=== PATIENT | male | born 1945 | race Caucasian/White ===

== ENCOUNTER → 2019-02-27 14:39 | Outpatient (CLI) | payer MEDICARE, OTHER, SELFPAY ==
--- NOTE | 2019-02-27 | DI.CT.S_ITS ---
PROCEDURE: CT CHEST WO CON INDICATIONS: Other nonspecific abnormal finding of lung field TECHNIQUE: Noncontrast 5 mm thick sections acquired from the pulmonary apices to the posterior costophrenic angles. 1 mm lung window, 5 mm thick coronal and sagittal and 7 mm axial MIP reformats were then acquired. For radiation dose reduction, the following was used: automated exposure control, adjustment of mA and/or kV according to patient size. COMPARISON: CT of the chest , 06/23/2014. FINDINGS: Image quality: Excellent. Lungs and pleura: No acute air space opacities. Stable streaky opacity in the medial right lower lobe and most likely due to atelectasis or scarring. Minimal peripheral ground glass opacity. No pleural effusions or pneumothorax. Central and peripheral airways are patent and normal in caliber. A few areas of bronchial wall thickening similar to prior exam. Mediastinum: Heart size is normal. No pericardial effusion. No mediastinal adenopathy by size criteria. Ascending aorta is prominent in size measuring approximately 3.5 cm. Moderate calcified atherosclerotic plaque. Esophagus is normal in caliber. Small hiatal hernia. Bones and chest wall: No suspicious bony lesions. No vertebral body compression fractures. No axillary or supraclavicular adenopathy by size criteria. Thyroid gland is unremarkable. Abdomen: Visualized upper abdominal solid organs and bowel loops appear normal in the absence of contrast. IMPRESSION: 1. Long-term stable streaky opacity in the medial right lower lobe which most likely represents atelectasis or scarring. 2. No acute airspace opacity. 3. Aneurysmal dilatation of the ascending aorta measuring approximately 3.5 cm. Dictated by: Alexis Mo M.D. on 02/27/2019 at 15:46 Approved by: Alexis Mo M.D. on 02/27/2019 at 15:56
== END ==
PROVIDERS: PCP Internal Medicine; Visit Provider Internal Medicine
DX: R91.8 Other nonspecific abnormal finding of lung field (principal); I71.2 Thoracic aortic aneurysm, without rupture; K44.9 Diaphragmatic hernia without obstruction or gangrene
CPT/HCPCS: 71250

== ENCOUNTER → 2020-06-27 19:44 | Outpatient (ROUT) | payer MEDICARE, OTHER, SELFPAY ==
[2020-06-27 20:06] LABS: Aspartate Aminotransferase 35 IU/L (17-59); BUN Creatinine Ratio 16.3 (6-22); Blood Urea Nitrogen 16 mg/dL (9-20); Calcium 9.5 mg/dL (8.4-10.2); Carbon Dioxide 32 mmol/L (22-32); Chloride 102 mmol/L (98-107); Cholesterol 122 mg/dL (140-199); Estimated Glomerular Filt Rate > 60.0 mL/min (>60); Glucose 102 mg/dL (80-110); HDL Cholesterol 43 mg/dL (40-60); HEMOLYSIS < 15 (0-50); LDL Cholesterol Calculated 65 mg/dL (<100); Potassium 4.7 mmol/L (3.4-5.1); Sodium 136 mmol/L (137-145); Triglycerides 68 mg/dL (35-150)
[2020-06-27 20:36] LABS: Prostate Specific Antigen 1.81 ng/mL (0.10-4.00)
== END ==
PROVIDERS: PCP Internal Medicine; Visit Provider Internal Medicine
DX: N40.1 Benign prostatic hyperplasia with lower urinary tract symptoms (principal); E78.2 Mixed hyperlipidemia; R97.20 Elevated prostate specific antigen [PSA]
CPT/HCPCS: 80048; 80061; 84153; 84450

== ENCOUNTER 2021-07-29 08:14 | Observation (INO) | payer MEDICARE, OTHER, SELFPAY ==
[2021-07-29] VITALS (18 sets, daily range): BP systolic 107–145; BP diastolic 61–77; PULSE 49–64; RESP 12–21; TEMP 36.6–36.8; O2SAT 97–99; BMI 25.7; BMI 26.2
--- NOTE | 2021-07-29 08:22 | DI.CT.S_ITS ---
PROCEDURE: CT STROKE INDICATIONS: CVA TECHNIQUE: Noncontrast 4.5 mm thick angled axial sections acquired from the foramen magnum to the vertex, with coronal reformats. For radiation dose reduction, the following was used: automated exposure control, adjustment of mA and/or kV according to patient size. COMPARISON: [facility], MR, BRAIN (IAC) W&WO CONTRAST, 06/18/2017, 9:07. FINDINGS: Image quality: Excellent. CSF spaces: Basal cisterns are patent. No extra-axial fluid collections. The ventricles are symmetric in size and shape. Brain: No intracranial bleeds or masses. There is cerebral volume loss for age, with resultant ventricular and sulcal prominence. There are periventricular and deep white matter chronic small vessel ischemic changes. There is intracranial internal carotid artery atherosclerosis. Skull and face: Calvarium and visualized facial bones appear intact, without suspicious lesions. Sinuses: Visualized sinuses and mastoids are clear. IMPRESSION: No acute intracranial abnormalities. The result was discussed with Dr. Toth on 07/29/2021 at 08:30 hours. This study fulfills neurological imaging criteria for inclusion or exclusion of acute stroke therapies based on available published neurological guidelines. Dictated by: Diamond Frausto M.D. on 07/29/2021 at 8:35 Approved by: Diamond Frausto M.D. on 07/29/2021 at 8:37
--- NOTE | 2021-07-29 08:23 | DI.CT.S_ITS ---
PROCEDURE: CT ANGIO HEAD AND NECK INDICATIONS: CVA TECHNIQUE: Noncontrast images were performed earlier in the day and not repeated. After the administration of intravenous contrast, 1 mm thick sections acquired from the aortic arch through the [place]. Post-contrast 4.5 mm thick sections then re-acquired from the foramen magnum to the vertex. 3-dimensional fjairtk-zzfkzxggx-fqqldbdkbe (MIP) and/or volume rendering reformats were acquired of the central intracranial vasculature and neck separately. COMPARISON: [facility], MR, BRAIN (IAC) W&WO CONTRAST, 06/18/2017, 9:07. [facility], CT, CT STROKE, 07/29/2021, 8:27. FINDINGS: Image quality: Limited by bolus timing, with venous contamination. BRAIN: CSF spaces: Ventricles are normal in size and shape. Basal cisterns are patent. No extra-axial fluid collections. Brain: No midline shift. No intracranial bleeds or masses. Barton-white matter interface appears intact. Calcification is seen within the pineal region, which is considered to be within normal limits. Skull and face: Calvarium and facial bones appear intact, without suspicious lesions. Orbits appear normal. Sinuses: Sinuses and mastoids are clear. HEAD CT ANGIOGRAPHY: Anterior circulation: Intracranial internal carotid arteries are normal in size and flow. 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 The flow within the middle cerebral arteries is normal and symmetric. The anterior communicating artery is seen. No aneurysms are seen. Posterior circulation: Visualized portions of the vertebral arteries demonstrate normal caliber, and join to form a normal appearing basilar artery. Flow within the posterior cerebral arteries is normal and symmetric. No aneurysms are seen. NECK CT ANGIOGRAPHY: Carotid system: The great vessels demonstrate a conventional anatomy as they arise from the aortic arch. The origins of the common carotid arteries appear patent. The common carotid arteries demonstrate normal caliber and courses. The bifurcation regions are both widely patent. The internal carotid arteries demonstrate normal calibers and courses. Posterior circulation: There is approximately 50% narrowing seen involving the left proximal vertebral artery near the origin. The right vertebral artery origin is within normal limits.. The more superior extracranial portions of both vertebral arteries also demonstrate normal courses and calibers. They join to form a normal appearing basilar artery. Soft tissues: Visualized neck soft tissues demonstrate no suspicious abnormalities. Bones: No suspicious bony lesions. Visualized cervical spine appears normally aligned. At least moderate cervical spine degenerative change. IMPRESSION: No significant carotid stenosis can be seen. Approximately 50% narrowing seen involving the left proximal vertebral artery. No significant intracranial arterial abnormality is seen. Incidental note is made of: Fenestrated right A1 segment Cervical spine degenerative change Any quantitative measurements of stenosis were performed using NASCET criteria. Dictated by: Stephane Mederos M.D. on 07/29/2021 at 8:26 Approved by: Stephane Mederos M.D. on 07/29/2021 at 8:30
--- NOTE | 2021-07-29 08:24 | ED_ITS ---
HPI - Neuro Symptoms/Deficit General Chief Complaint: Neuro Symptoms/Deficit Stated Complaint: Dizzy, trouble walking Time Seen by Provider: 07/29/21 08:22 Source: patient Mode of arrival: Ambulatory Limitations: no limitations History of Present Illness HPI Narrative: The patient arrives to the ER with concerns about CVA. He describes awakening/get out of bed about 6:00 a.m.. He had a cup of coffee. He had a smoker. He was outside, he developed sudden dizziness. He denies chest pain or palpitations. He has no dyspnea. He had no visual changes. He arrives with his son, who describes nonsense speach. He spoke clearly, but His words made to sense. The patient is now coherent. He has no visual changes. The initial dizziness has resolved. He denies focal weakness or numbness. He denies palpitations, cardiac history, her current neurologic deficits. He has no prior history of TIA/CVA. He is a cigarette smoker. He denies history of hypertension, or diabetes. He is treated for hyperlipidemia. On Anticoagulants: No Related Data Home Medications Medication Instructions Recorded Confirmed nortriptyline 10 mg capsule 10 mg PO DAILY 07/29/21 07/29/21 sertraline 100 mg tablet 100 mg PO DAILY 07/29/21 07/29/21 simvastatin 40 mg tablet 40 mg PO QPM 07/29/21 07/29/21 tamsulosin 0.4 mg capsule 0.4 mg PO DAILY 07/29/21 07/29/21 Allergies Allergy/AdvReac Type Severity Reaction Status Date / Time Sulfa (Sulfonamide Allergy Verified 07/29/21 09:28 Antibiotics) Review of Systems Constitutional Constitutional: Denies chills, Denies fatigue, Denies fever(s), Denies headac he(s) and Denies weakness Comments: No recent illness. Eyes Eyes: Denies change in vision and Denies diplopia ENT Ears, Nose, Mouth, and Throat: Reports dizziness, Denies headache(s), Denies neck pain, Denies sinus pain and Denies sinus pressure Cardiovascular Cardiovascular: Denies chest pain, Denies syncope, Denies rapid heart rate and Denies dyspnea Comments: No history of arrhythmia. Respiratory Respiratory: Denies cough and Denies dyspnea Gastrointestinal Gastrointestinal: Denies abdominal pain, Denies nausea and Denies vomiting Genitourinary Genitourinary: Denies hematuria, Denies dysuria and Denies urinary frequency Musculoskeletal Musculoskeletal: Denies back pain, Denies neck pain and Denies numbness Integumentary/Breasts Skin/Breast: Denies lesions and Denies rash Neurologic Neurologic: Denies confusion, Reports dizziness, Denies syncope, Denies headache(s), Denies numbness and Denies weakness Psychiatric Psychiatric: Denies anxiety and Denies confusion Endocrine Endocrine: Denies fatigue Hematologic/Lymphatic On Anticoagulants: No Patient History Medical History (Updated 07/29/21 @ 13:23 by Juan Pablo Roberts MD) BPH (benign prostatic hyperplasia) Depression Hyperlipidemia Surgical History (Updated 07/29/21 @ 10:16 by Juan Pablo Roberts MD) No significant past surgical history Social History Smoking Status: Current every day smoker Exam Initial Vital Signs Initial Vital Signs: Vital Signs Temperature 98.2 F 07/29/21 08:20 Pulse Rate 61 07/29/21 08:20 Respiratory Rate 17 07/29/21 08:20 Blood Pressure 145/75 H 07/29/21 08:20 Pulse Oximetry 98 07/29/21 08:20 Const General: cooperative, healthy appearing, comfortable, well developed, well groomed and No acute distress HENMT Head: normal to inspection, normocephalic and atraumatic Mouth: oral mucosae normal Throat: posterior oropharynx normal Eyes General: appearance normal, both eyes and all related structures Pupils: PERRL EOM: EOM intact bilaterally and No nystagmus Other: No visual field cuts. Neck Other: No bruit Chest Chest: normal inspection of the chest Resp Effort & Inspection: normal respiratory effort Auscultation: clear to auscultation bilaterally Cardio Rate: regular rate Rhythm: regular rhythm Heart Sounds: S1 normal, S2 normal, no murmurs and no rubs GI Inspection: normal to inspection Palpation: soft, No mass and No tender Back/Spine/Pelvis Back: normal to inspection and No CVA tenderness Skin General: no rashes or lesions noted Neuro General: patient alert, patient awake, patient oriented x3 and no focal motor deficits Cranial Nerves: No nystagmus Motor: muscle tone normal throughout Extrem General: normal to inspection, no pedal edema and no calf tenderness Psych Mental Status: mental status grossly normal Scores NIH Stroke Scale Level of Conciousness: Alert, keenly responsive Ask month/age: Answers both questions correctly. Open/close eyes, close hand: Performs both tasks correctly Best gaze horizontal: Normal Visual lópez: No visual loss Facial palsy: Normal symetrical movement Left arm drift: No drift for full 10 sec Right arm drift: No drift for full 10 sec Left leg drift: No drift for full 5 sec Right leg drift: No drift for full 5 sec Limb ataxia: Absent Sensory on face/arms/legs: Normal, no sensory loss Best language: No aphasia, normal Dysarthria: Normal Extinction or inattention: No abnormality Total NIH Stroke scale score: 0 Course Course Course Narrative: The patient's son, Alex, arrived at his Dad's house 7:45 this morning. He was having dysarthria that time. The dizziness and dysarthria resolved about the time they arrived here at the hospital. Initial head CT shows no acute findings. Aspirin was given. Head/neck CTA shows 50% narrowing of the left proximal vertebral body. Anterior circulation is clear. The patient was given meclizine for mild recurrent dizziness. There were no neurologic deficits. The patient was admitted to hospitalist, . Orders Ordered: ED Orders 07/29/21 08:22 CT Stroke Stat Urine Drug Screen, Rapid Stat EKG-12 Lead Stat 07/29/21 08:23 CT angio head and neck Stat 07/29/21 08:45 Basic Metabolic Panel Stat Complete Blood Count AUTO DIFF Stat 07/29/21 08:50 COVID19 -Nasal swab/Pre-Proc Stat Sodium Chloride (Normal Saline 0.9%) 1,000 mls @ 150 mls/hr IV CONT JESSI Last Admin: 07/29/21 09:26 Dose: 150 mls/hr Documented by: BLACK Discontinued Medications Aspirin (Aspirin 81 Mg Chew Tab) 324 mg PO NOW ONE Stop: 07/29/21 08:55 Last Admin: 07/29/21 09:15 Dose: 324 mg Documented by: BLACK Meclizine HCl (Meclizine Hcl 12.5 Mg Tablet) 50 mg PO NOW ONE Stop: 07/29/21 09:49 Last Admin: 07/29/21 09:57 Dose: 50 mg Documented by: BLACK Vital Signs Vital signs: Vital Signs - 8 hr 07/29/21 08:20 07/29/21 08:50 07/29/21 09:00 Temperature 98.2 F Pulse Rate 61 62 60 Respiratory Rate 17 21 Blood Pressure 145/75 H Pulse Oximetry 98 99 99 07/29/21 09:30 07/29/21 09:35 07/29/21 10:00 Temperature Pulse Rate 52 L 53 L 60 Respiratory Rate 18 17 18 Blood Pressure 141/72 H 143/77 H Pulse Oximetry 97 97 07/29/21 10:30 07/29/21 11:00 07/29/21 11:30 Temperature Pulse Rate 56 L 49 L 55 L Respiratory Rate 17 17 18 Blood Pressure 134/74 126/63 133/72 Pulse Oximetry MDM - Neuro Symptoms/Deficit Lab Data Result diagrams: 07/29/21 08:45 07/29/21 08:45 Labs: Lab Results 07/29/21 07/29/21 07/29/21 Range/Units 08:45 08:45 08:50 WBC 6.3 (4.5-11.0) X10^3/uL RBC 4.29 L (4.5-5.9) X10^6/uL Hgb 13.0 L (13.5-17.5) g/dL Hct 38.0 L (41-53) % MCV 88.5 (80-100) fL MCH 30.3 (26-34) PG MCHC 34.3 (30-36) % RDW 14.6 (11.6-14.8) % Plt Count 185 (150-400) X10^3/uL Neut % (Auto) 59.9 (50-75) % Lymph % (Auto) 27.6 (25-40) % [place] % (Auto) 9.7 (3-14) % Eos % (Auto) 2.2 (2-4) % Baso % (Auto) 0.6 (0-2) % Neut # (Auto) 3800 (4586-8617) /uL Lymph # (Auto) 1800 (2470-2636) /uL [place] # (Auto) 600 (0-900) /uL Eos # (Auto) 100 (0-450) /uL Baso # (Auto) 0 (0-100) /uL Sodium 137 (137-145) mmol/L Potassium 4.6 (3.4-5.1) mmol/L Chloride 104 (98-107) mmol/L Carbon Dioxide 27 (22-32) mmol/L BUN 22 H (9-20) mg/dL Creatinine 0.97 (0.66-1.25) mg/dL Estimated GFR > 60.0 (>60) mL/min BUN/Creatinine Ratio 22.7 H (6-22) Glucose 138 H (80-110) mg/dL Calcium 8.9 (8.4-10.2) mg/dL SARS-CoV-2 (PCR) Negative (Negative) Point of Care Testing Glucose POC [address] scan - head: Radiologist's Impression: No acute intracranial abnormalities. CTA head and neck:: Radiologist's Impression: ? No significant carotid stenosis can be seen. ? Approximately 50% narrowing seen involving the left proximal vertebral artery. ? No significant intracranial arterial abnormality is seen.? ? ? Incidental note is made of: Fenestrated right A1 segment Cervical spine degenerative change ECG Data Attestation: I personally reviewed and interpreted this ECG as follows: (Normal sinus rhythm rate 61 beats per minute. No ectopy. No acute ST T wave changes. Normal study.) Critical Care Time Critical Care Time Critical Care Time: Yes Total Critical Care Time: 35 Attestation: Time included initial patient assessment, review of Radiology, cardiac, and lab information, in clinical decision making time. The patient's clinical needs were explained. The case was discussed with admitting hospitalist. Discharge Plan Departure Patient Disposition: Home Clinical Impression: Transient ischemic attack, Hyperlipidemia, Continuous tobacco abuse
[2021-07-29 08:49] LABS: Add Manual Diff / Slide Review NO; Basophils Absolute Auto 0 /uL (0-100); Basophils Percent Auto 0.6 % (0-2); Eosinophils Absolute Auto 100 /uL (0-450); Eosinophils Percent Auto 2.2 % (2-4); Lymphocytes Absolute Auto 1800 /uL (1100-4500); Lymphocytes Percent Auto 27.6 % (25-40); Mean Corpuscular HGB Conc 34.3 % (30-36); Mean Corpuscular Hemoglobin 30.3 PG (26-34); Mean Corpuscular Volume 88.5 fL (80-100); Monocytes Absolute Auto 600 /uL (0-900); Monocytes Percent Auto 9.7 % (3-14); Neutrophils Absolute Auto 3800 /uL (1500-7000); Neutrophils Percent Auto 59.9 % (50-75); Platelet Count 185 X10^3/uL (150-400); Red Blood Cell Count 4.29 X10^6/uL (4.5-5.9); Red Cell Distribution Width 14.6 % (11.6-14.8); White Blood Cell Count 6.3 X10^3/uL (4.5-11.0)
[2021-07-29 09:02] LABS: BUN Creatinine Ratio 22.7 (6-22); Blood Urea Nitrogen 22 mg/dL (9-20); Calcium 8.9 mg/dL (8.4-10.2); Carbon Dioxide 27 mmol/L (22-32); Chloride 104 mmol/L (98-107); Estimated Glomerular Filt Rate > 60.0 mL/min (>60); Glucose 138 mg/dL (80-110); HEMOLYSIS < 15 (0-50); Potassium 4.6 mmol/L (3.4-5.1); Sodium 137 mmol/L (137-145)
[2021-07-29] MEDS: ASPIRIN 81 MG CHEW TAB 324 MG PO (09:15)
[2021-07-29] MEDS: SODIUM CHLORIDE 0.9% 1,000 ML 150 ML IV (09:26)
[2021-07-29] MEDS: MECLIZINE HCL 12.5 MG TABLET 50 MG PO (09:57)
[2021-07-29 13:01] LABS: COVID19 -Nasal RAPID Negative (Negative)
--- NOTE | 2021-07-29 14:25 | DI.MRI.S_ITS ---
PROCEDURE: MR HEAD/BRAIN WO CON INDICATIONS: tia TECHNIQUE: Non-contrast axial T1 spin echo, axial T2 fast spin echo, sagittal and axial FLAIR, coronal T2 fast spin echo, axial gradient echo, axial diffusion and ADC through the brain. COMPARISON: [facility], CT, CT ANGIO HEAD AND NECK, 07/29/2021, 8:33. [facility], CT, CT STROKE, 07/29/2021, 8:27. FINDINGS: Image quality: Excellent. CSF spaces: Ventricles appear symmetric in size and shape. Basal cisterns are patent. No extra-axial fluid collections. Brain: No intracranial bleeds or mass effects. There is moderate cerebral volume loss. There are mild periventricular and deep white matter chronic small vessel ischemic changes. Brainstem appears normal. Diffusion-weighted images show no acute ischemic insults. No chronic ischemic insults. Normal intravascular flow voids are present. Skull and face: Calvarial bone marrow is normal in signal. Orbits are normal. Sinuses: Sinuses and mastoids are clear. IMPRESSION: 1. No acute intracranial abnormalities. 2. Cerebral volume loss and chronic microvascular ischemic changes. Dictated by: Diamond Frausto M.D. on 07/29/2021 at 15:39 Approved by: Diamond Frausto M.D. on 07/29/2021 at 15:41
--- NOTE | 2021-07-29 14:26 | DI.ECHO.S_ITS ---
[facility] +---------+ : : [address] : : : : [place], : : : : [place] [id number] : : : : Phone: [phone] Echocardiogram Report + + :Name: CAROL KERNS Study Date: 07/30/2021 Height: 70 in : :[facility] ReadingLocation: Weight: 179 lb: : Gender: Male BSA: 2.0 m2 : :: 1945 Age: 76 yrs : :Reason For Study: TIA : :Ordering Physician: PAULINA, : :NORBERT Performed By: Inna Crump : :Referring: NORBERT GALLARDO : + + Interpretation Summary The left ventricle is normal in size and wall thickness. The ejection fraction is estimated to be 55-60%. Subtle distal anterolateral hypokinesis. The right ventricle is normal in size and function. There is moderate tricuspid regurgitation. The right ventricular systolic pressure is estimated to be at least 37 mmHg based on an estimated right atrial pressure of 8 mm Hg. Mild atherosclerotic plaque(s) in the aortic arch. Procedure: A two-dimensional transthoracic echocardiogram with color flow and Doppler was performed. The study quality was technically adequate. There is no prior echocardiogram noted for this patient. The patient was in normal sinus rhythm during the exam. Left Ventricle: The left ventricle is normal in size and wall thickness. There is no thrombus. The ejection fraction is estimated to be 55-60%. Subtle distal anterolateral hypokinesis. Diastolic parameters suggest probable normal left ventricular diastolic function and normal filling pressures. Right Ventricle: The right ventricle is normal in size and function. Atria: The left atrium is mildly dilated. The right atrium is severely dilated. There is no Doppler evidence for an interatrial shunt. Mitral Valve: The mitral valve leaflets appear mildly thickened, but open well. The mitral valve leaflets are mildly calcified. There is mild mitral regurgitation. Aortic Valve: The aortic valve is trileaflet. The aortic valve opens well. There is no aortic valve stenosis. No aortic regurgitation is present. Tricuspid Valve: The tricuspid valve is normal. There is moderate tricuspid regurgitation. The right ventricular systolic pressure is estimated to be at least 37 mmHg based on an estimated right atrial pressure of 8 mm Hg. Pulmonic Valve: The pulmonic valve leaflets are thin and pliable; valve motion is normal. There is mild pulmonic regurgitation. Great Vessels: The aortic root is normal size. The ascending aorta is normal in size. Mild atherosclerotic plaque(s) in the aortic arch. The pulmonary artery is not well visualized, but is probably normal size. The IVC is dilated (diameter is greater than 2.1 cm) yet it collapses greater than 50% with a sniff. This suggests a right atrial pressure of 8 mm Hg. Pericardium/ Pleura There is no pericardial effusion. MMode/2D Measurements & Calculations LVIDd: 5.6 cm LVOT diam: 2.4 cm LVIDs: 3.7 cm Ao root diam: 3.6 cm IVSd: 0.73 cm asc Aorta Diam: 3.4 cm LVPWd: 0.80 cm Ao Arch Diam (Prox Trans): 2.7 cm LV aponte. diameter/BSA (cm/m^2): 2.8 LV sys. diameter/BSA (cm/m^2): 1.9 FS: 34.4 % LA A2 area: 25.5 cm2 RA long axis: 6.7 cm LA A4 area: 21.6 cm2 RA area: 26.5 cm2 LA length (vol): 6.0 cm RA vol: 88.7 ml LA vol: 78.5 ml RA : 44.6 ml/m2 LA vol index: 39.4 ml/m2 RVD1 (basal): 3.1 cm IVC diam: 2.3 cm RVD2 (mid): 1.9 cm TAPSE: 3.3 cm Doppler Measurements & Calculations Ao V2 max: 141.4 cm/sec LVOT Max Josse: 105.9 cm/sec Ao V2 mean: 97.0 cm/sec LV V1 max P.5 mmHg Ao V2 VTI: 28.0 cm LV V1 VTI: 20.8 cm Ao max P.0 mmHg Ao mean P.2 mmHg ARIS(I,D): 3.4 cm2 MV E max josse: 73.9 cm/sec ARIS(V,D): 3.4 cm2 MV A max josse: 49.6 cm/sec ARIS indexed to BSA (cm^2/m^2): 1.7 MV E/A: 1.5 sev ratio: 0.74 Med Peak E' Josse: 9.6 cm/sec E/E' med: 7.7 Lat Peak E' Josse: 13.3 cm/sec E/E' lat: 5.6 E/e' average: 6.6 MV P1/2t: 48.8 msec TR max josse: 267.6 cm/sec MVA(P1/2t): 4.5 cm2 TR max P.7 mmHg PA V2 max: 79.4 cm/sec SV(LVOT): 94.7 ml PA V2 mean: 54.0 cm/sec PA mean P.3 mmHg PA Accel Time: 0.08 sec Reading Physician:05:00 PM
[2021-07-29 15:07] LABS: Appearance Urine UA CLEAR; Bilirubin Urine UA NEGATIVE (NEGATIVE); Color Urine UA YELLOW; Glucose Urine UA NEGATIVE (Negative); Ketones Urine UA NEGATIVE (NEGATIVE); Leukocyte Esterase Urine UA NEGATIVE (NEGATIVE); Nitrite Urine UA NEGATIVE (Negative); Occult Blood Urine UA NEGATIVE (Negative); Protein Urine UA NEGATIVE (Negative); Urobilinogen Urine UA 0.2 E.U./dL (0.2); pH Urine UA 6.5 (4.5-8.0)
[2021-07-29 15:10] LABS: UR Morphine/Opiate cutoff 300 Negative (Negative); Ur Creatinine Normal (Normal); Ur Specific Gravity Normal (Normal); Urine Amphetamines Negative (Negative); Urine Barbiturates Negative (Negative); Urine Benzodiazepines Negative (Negative); Urine Cocaine Negative (Negative); Urine MDMA Negative (Negative); Urine Methadone Negative (Negative); Urine Methamphetamines Negative (Negative); Urine Oxycodone Negative (Negative); Urine Phencyclidine Negative (Negative); Urine Tetrahydrocannabinol Positive (Negative); Urine Tricyclic Antidepressant Positive (Negative); Urine pH Normal (Normal)
--- NOTE | 2021-07-29 15:58 | PT-IP ANOTE ---
talked with nurse and stated that pt is not ready for PT. nurse informed that pt has dizziness in laying position and in standing and unable to transfer but had gotten meclizine from the ED and has MRI pending. PT will recheck tomorrow.
[2021-07-29] MEDS: MECLIZINE HCL 12.5 MG TABLET 25 MG PO (16:40)
--- NOTE | 2021-07-29 17:30 | PM.HP.1 ---
History of Present Illness History of Present Illness Date Patient Seen: 07/29/21 Time Patient Seen: 15:30 Chief complaint: Dizzy, trouble walking Narrative: Mr. Win is a 76M smoker, HL, BPH who presents with dizziness. This morning he woke up and was in his usual state of health. Later when outside he developed dizziness, as if the room was spinning. He denies any other symptoms. However, his family member said that he was speaking nonsense speech and was not making any sense. The patient denies any visual changes, any swallowing difficulties, any lateralizing weakness in his extremities. He was feeling improved by the time he arrived in the ED, but continued to have room spinning sensation. In the ED workup was done, vitals notable for mildly elevated blood pressure at 145/75. Labs notable for WBC 6.3, hgb 13.0, creatinine 0.97. CT head showed no acute process. CT angio head and neck showed 50% narrowing of the left proximal vertebral artery. Brain MRI showed no acute process. He was given full dose aspirin and meclizine and admitted for further treatment. Patient History Medical History BPH (benign prostatic hyperplasia) Depression Hyperlipidemia Surgical History No significant past surgical history Family & Social History Social History: household members none Prior Living Arrangements House Safety & Behavioral: Feels Safe in Current Yes Environment Been Physically Hurt or No Threatened By a Person Suicidal Ideation Description None Suicide Plan Description No Plan Tobacco & Substance use: Tobacco type cigarettes Smoking Status Current every day smoker alcohol intake never Substance Use Type does not use Meds Home Medications and Allergies Home Medications Medication Instructions Recorded Confirmed Type nortriptyline 10 mg capsule 10 mg PO DAILY 07/29/21 07/29/21 History sertraline 100 mg tablet 100 mg PO DAILY 07/29/21 07/29/21 History simvastatin 40 mg tablet 40 mg PO QPM 07/29/21 07/29/21 History tamsulosin 0.4 mg capsule 0.4 mg PO DAILY 07/29/21 07/29/21 History Allergies Allergy/AdvReac Type Severity Reaction Status Date / Time Sulfa (Sulfonamide Allergy Verified 07/29/21 09:28 Antibiotics) Review of Systems Review of Systems Narrative: 14 systems reviewed and negative aside from what is noted in HPI Exam Vital Signs (past 8 hours): - 07/29/21 09:35 07/29/21 10:00 07/29/21 10:30 Temperature Pulse Rate 53 L 60 56 L Respiratory Rate 17 18 17 Blood Pressure 141/72 H 143/77 H 134/74 Pulse Oximetry 97 07/29/21 11:00 07/29/21 11:30 07/29/21 12:00 Temperature Pulse Rate 49 L 55 L 59 L Respiratory Rate 17 18 13 Blood Pressure 126/63 133/72 Pulse Oximetry 07/29/21 12:01 07/29/21 12:30 07/29/21 13:00 Temperature Pulse Rate 58 L 53 L Respiratory Rate 12 12 Blood Pressure 131/61 133/75 130/73 Pulse Oximetry 07/29/21 13:30 07/29/21 14:00 Temperature 97.9 F Pulse Rate 62 55 L Respiratory Rate 12 20 Blood Pressure 120/74 120/65 Pulse Oximetry 98 Oxygen Delivery Method Room Air Oxygen Flow Rate 0 Narrative Exam Narrative: GEN: no acute distress HEENT: moist mucous membranes, PERRL NECK: trachea midline, no JVD CV: regular rate and rhythm, no murmurs PULM: clear bilaterally ABD: soft, nontender, nondistended, no organomegaly EXT: warm and well perfused with no edema NEURO: awake, alert, oriented, no focal deficits, sensation intact, speech intact, no facial droop PSYCH: pleasant, cooperative Objective Labs Result Diagrams: 07/29/21 08:45 07/29/21 08:45 Labs: Laboratory Results - last 24 hr 07/29/21 07/29/21 07/29/21 08:45 08:45 08:50 WBC 6.3 RBC 4.29 L Hgb 13.0 L Hct 38.0 L MCV 88.5 MCH 30.3 MCHC 34.3 RDW 14.6 Plt Count 185 Neut % (Auto) 59.9 Lymph % (Auto) 27.6 Florence % (Auto) 9.7 Eos % (Auto) 2.2 Baso % (Auto) 0.6 Neut # (Auto) 3800 Lymph # (Auto) 1800 Florence # (Auto) 600 Eos # (Auto) 100 Baso # (Auto) 0 Sodium 137 Potassium 4.6 Chloride 104 Carbon Dioxide 27 BUN 22 H Creatinine 0.97 Estimated GFR > 60.0 BUN/Creatinine Ratio 22.7 H Glucose 138 H Calcium 8.9 Urine Color Urine Appearance Urine pH Ur Specific Eastman Urine Protein Urine Glucose (UA) Urine Ketones Urine Occult Blood Urine Nitrate Urine Bilirubin Urine Urobilinogen Ur Leukocyte Esterase U Opiates 300ng/mL cut Ur Oxycodone Screen Urine Methadone Screen Ur Barbiturates Screen U Tricyclic Antidepress Ur Phencyclidine Scrn Ur Amphetamines Screen U Methamphetamines Scrn Ur MDMA Scrn (Ecstasy) U Benzodiazepines Scrn Urine Cocaine Screen U Marijuana (THC) Screen SARS-CoV-2 (PCR) Negative 07/29/21 07/29/21 14:50 14:50 WBC RBC Hgb Hct MCV MCH MCHC RDW Plt Count Neut % (Auto) Lymph % (Auto) Florence % (Auto) Eos % (Auto) Baso % (Auto) Neut # (Auto) Lymph # (Auto) Florence # (Auto) Eos # (Auto) Baso # (Auto) Sodium Potassium Chloride Carbon Dioxide BUN Creatinine Estimated GFR BUN/Creatinine Ratio Glucose Calcium Urine Color Yellow Urine Appearance Clear Urine pH 6.5 Ur Specific Eastman 1.010 Urine Protein Negative Urine Glucose (UA) Negative Urine Ketones Negative Urine Occult Blood Negative Urine Nitrate Negative Urine Bilirubin Negative Urine Urobilinogen 0.2 Ur Leukocyte Esterase Negative U Opiates 300ng/mL cut Negative Ur Oxycodone Screen Negative Urine Methadone Screen Negative Ur Barbiturates Screen Negative U Tricyclic Antidepress Positive H Ur Phencyclidine Scrn Negative Ur Amphetamines Screen Negative U Methamphetamines Scrn Negative Ur MDMA Scrn (Ecstasy) Negative U Benzodiazepines Scrn Negative Urine Cocaine Screen Negative U Marijuana (THC) Screen Positive H SARS-CoV-2 (PCR) Assessment & Plan Assessment & Plan narrative: Mr. Win is a 76M with PMH HL, smoking who presents with vertigo and speech difficulties. 1. Vertigo and aphasia -concern for possible TIA -CT head negative, CT angio head/neck shows no large vessel thrombus or occlusion, but does show verterbral artery narrowing -MRI head negative for stroke -patient already on statin and aspirin, add plavix for now -ECHO ordered -NIH scale ordered -check lipids and a1c -PT/OT speech -counseled on smoking cessation -other etiology is possible BPPV - also ordered for meclizine 2. Hyperlipidemia -continue statin 3. Active smoker -encourage smoking cessation 4. BPH -continue tamsulosin 5. Depression -continue nortriptyline, sertraline CODE: Full Proxy: Pau Win, spouse I have utilized all available resources to reconcile the patient's home medications Time Spent With Patient Critical Care time: I spent a total of [] minutes of critical care time on this patient's care today; this time is exclusive of procedural time. Quality MIPS - Admit I confirm the patient?s Advance Care Plan is present, Code status is documented, Surrogate decision maker is in patient?s record [If Yes, STOP here]: Yes
--- NOTE | 2021-07-29 18:16 | PC.NURSE ---
pt denies dizziness after taking meclizine. pt ambulated to the bathroom, sba. voiding ok.
[2021-07-29] MEDS: ATORVASTATIN 20 MG TABLET 40 MG PO (20:06)
[2021-07-30 03:33] VITALS: BP 119/72; PULSE 57; RESP 18; TEMP 37; O2SAT 95
[2021-07-30 06:31] LABS: Add Manual Diff / Slide Review NO; Basophils Absolute Auto 0 /uL (0-100); Basophils Percent Auto 0.4 % (0-2); Eosinophils Absolute Auto 200 /uL (0-450); Eosinophils Percent Auto 2.2 % (2-4); Hematocrit 37.3 % (41-53); Hemoglobin 12.6 g/dL (13.5-17.5); Lymphocytes Absolute Auto 2200 /uL (1100-4500); Lymphocytes Percent Auto 28.7 % (25-40); Mean Corpuscular HGB Conc 33.8 % (30-36); Mean Corpuscular Hemoglobin 29.8 PG (26-34); Mean Corpuscular Volume 88.1 fL (80-100); Monocytes Absolute Auto 600 /uL (0-900); Monocytes Percent Auto 8.4 % (3-14); Neutrophils Absolute Auto 4500 /uL (1500-7000); Neutrophils Percent Auto 60.3 % (50-75); Platelet Count 184 X10^3/uL (150-400); Red Blood Cell Count 4.23 X10^6/uL (4.5-5.9); Red Cell Distribution Width 14.6 % (11.6-14.8); White Blood Cell Count 7.5 X10^3/uL (4.5-11.0)
[2021-07-30 06:36] LABS: BUN Creatinine Ratio 21.1 (6-22); Blood Urea Nitrogen 19 mg/dL (9-20); Calcium 8.7 mg/dL (8.4-10.2); Carbon Dioxide 27 mmol/L (22-32); Chloride 107 mmol/L (98-107); Estimated Glomerular Filt Rate > 60.0 mL/min (>60); Glucose 87 mg/dL (80-110); HEMOLYSIS < 15 (0-50); Potassium 3.9 mmol/L (3.4-5.1); Sodium 136 mmol/L (137-145)
[2021-07-30 06:42] LABS: Cholesterol 154 mg/dL (140-199); HDL Cholesterol 38 mg/dL (40-60); LDL Cholesterol Calculated 91 mg/dL (<100); Triglycerides 127 mg/dL (35-150)
[2021-07-30 06:49] LABS: Hemoglobin A1C% w Est Avg Glu 5.7 % (4.0-6.0)
[2021-07-30 07:00] VITALS: BP 112/66; BP 130/77; BP 131/81; PULSE 63; PULSE 64; PULSE 66; RESP 20; TEMP 38; O2SAT 96
--- NOTE | 2021-07-30 08:44 | P.DS_ITS ---
History of Present Illness History of Present Illness Chief complaint: Dizzy, trouble walking Narrative: Mr. Win is a 76M smoker, HL, BPH who presents with dizziness. This morning he woke up and was in his usual state of health. Later when outside he developed dizziness, as if the room was spinning. He denies any other symptoms. However, his family member said that he was speaking nonsense speech and was not making any sense. The patient denies any visual changes, any swallowing difficulties, any lateralizing weakness in his extremities. He was feeling improved by the time he arrived in the ED, but continued to have room spinning sensation. In the ED workup was done, vitals notable for mildly elevated blood pressure at 145/75. Labs notable for WBC 6.3, hgb 13.0, creatinine 0.97. CT head showed no acute process. CT angio head and neck showed 50% narrowing of the left proximal vertebral artery. Brain MRI showed no acute process. He was given full dose aspirin and meclizine and admitted for further treatment. Discharge Providers Provider Date of admission: 07/29/21 12:36 Discharge Date: 07/30/21 Primary care physician: Fernando Harvey MD Consults: 07/29/21 14:25 Consult to Occupational Therapy Evaluate & Treat Comment: Physician Instructions: Evaluate and treat Consult to Physical Therapy Evaluate & Treat Comment: Physician Instructions: Evaluate and Treat Consult to Speech Therapy Evaluate & Treat Comment: Physician Instructions: Evaluate and treat Discharge provider: Oneal Sood MD Summary Hospital Course Discharge Diagnosis: 1. Probable TIA 2. Active smoker 3. Hypoerlipidemia 4. BPH Hospital Course: Mr. Win came in to the hospital with vertigo and some transient speech difficulties. These symptoms resolved. He had workup showing no evidence of stroke. He did have moderate vertebral artery stenosis. He was already on aspirin, and was started on plavix. His symptoms are likely TIA vs possibly BPPV. He will be on plavix for three weeks and then continue taking aspirin and statin. He is encouraged to quit smoking, and he declined any further medical treatments to assist in quitting smoking at this time. Exam Vital Signs (past 8 hours): Oxygen Delivery Method Room Air Oxygen Flow Rate 0 Narrative Exam Narrative: GEN: no acute distress HEENT: moist mucous membranes, PERRL NECK: trachea midline, no JVD CV: regular rate and rhythm, no murmurs PULM: clear bilaterally ABD: soft, nontender, nondistended, no organomegaly EXT: warm and well perfused with no edema NEURO: awake, alert, oriented, no focal deficits, sensation intact, speech intact, no facial droop PSYCH: pleasant, cooperative Objective Labs Result Diagrams: 07/30/21 05:50 07/30/21 05:50 Labs: Laboratory Results - last 24 hr 07/30/21 07/30/21 07/30/21 05:50 05:50 05:50 Sodium 136 L Potassium 3.9 Chloride 107 Carbon Dioxide 27 BUN 19 Creatinine 0.90 Estimated GFR > 60.0 BUN/Creatinine Ratio 21.1 Glucose 87 Hemoglobin A1c 5.7 Calcium 8.7 Triglycerides 127 Cholesterol 154 LDL Cholesterol, Calc 91 HDL Cholesterol 38 L PFSH Medical History BPH (benign prostatic hyperplasia) Depression Hyperlipidemia Surgical History No significant past surgical history Social History household members: none Smoking Status: Current every day smoker alcohol intake: never Discharge Plan Discharge Plan Patient Disposition: Home Provider Discharge Comment: Mr. Win was admitted with dizziness (vertigo) and some speech issues. These resolved. He had an MRI that was negative for [facility] ro[facility]. He did have some plaque narrowing in his arteries in his brain. For this he is recommended to keep taking his statin, keep taking his aspirin. And to quit smoking. He is given a prescription for plavix to take along with aspirin for 3 weeks. Then stop the plavix and continue with just aspirin. This is to reduce the risk of having a stroke. It is also possible he may have had BPPV which is an inner ear cause of vertigo. He should follow up with his PCP. Discharge orders & Medications Prescriptions: New clopidogrel 75 mg Tablet 75 mg PO DAILY Qty: 21 0RF aspirin 81 mg Tablet,Delayed Release (Dr/Ec) 81 mg PO DAILY Qty: 30 0RF Continued sertraline 100 mg Tablet 100 mg PO DAILY 0RF simvastatin 40 mg tablet 40 mg PO QPM 0RF Label Comments: take 1 tablet by mouth every evening tamsulosin 0.4 mg capsule 0.4 mg PO DAILY 0RF Label Comments: take 1 capsule by mouth once daily nortriptyline 10 mg capsule 10 mg PO DAILY 0RF Label Comments: take 1 capsule by mouth once daily Follow up/Referrals: Fernando Harvey MD [Primary Care Provider] - Diet/Activity/Treatments Diet: Regular Visit Report/Discharge Packet Instructions: Clopidogrel (Alternative Therapy), Vertigo, DI for Transient Ischemic Attack, DI for Dizziness-Nonvertigo Discharge Data Primary Care Provider: Fernando Harvey V Attending Provider: Oneal Sood
[2021-07-30 09:00] VITALS: O2SAT 96
--- NOTE | 2021-07-30 09:05 | CM.DANOTE ---
DCP: Case received, EMR reviewed and met with patient. Introduced self and role. Was able to obtain information regarding patient's baseline activity status prior to hospitalization. DCP assessment completed with information currently available. Patient is a 76 year old male who admitted yesterday afternoon to the care of the hospitalist team. PCP: Dr. Harvey. Payer: confirmed: Medicare/[facility]. Patient came to the hospital via private vehicle secondary to having some dizziness, balance issues. According to note, son had been concerned, felt that he was having some word finding issues. Patient had MRI. He holds diagnosis of vertigo/TIA. Patient is a current smoker. Met with patient in his room. He is alert and oriented. Stated, he is feeling better today. He has not yet worked with P.T. Patient resides here in [place] with his son, Alex. His , Pau, is in a care center. Patient is independent at his baseline and drives. P: DCP to continue to follow. Patient will be working with the therapy team today. He should be able to go home when he is deemed medically stable Barbara Thorpe RN/Knife Machine Operator Discharge Planning/Care Management CM Discharge Assessment Start: 07/30/21 09:04 Freq: Status: Active Protocol: Document 07/30/21 09:04 (Rec: 07/30/21 09:05 [id number]) Discharge Planning Assessment Assigned Press Clipper Barbaar Thorpe RN/Knife Machine Operator Advance Directives? No History Provided By Patient,Medical Record Prior Living Arrangements House Household Members none Type of transporation used prior to Drives own vehicle admit Independent with ADL's Yes Is patient alert and oriented? Yes Caregiver for Another No Barriers to Discharge No Discharge Plan Home Transportation Arrangement Son Referrals Initiated None needed Whiteboard Updated in Patient Room with Yes name and ext. # of Press Clipper Review Status In Process Next Review Type Continued Stay Review
[2021-07-30] MEDS: CLOPIDOGREL 75 MG TABLET PO (09:14)
[2021-07-30] MEDS: SERTRALINE 50 MG TABLET 100 MG PO (09:14)
[2021-07-30] MEDS: TAMSULOSIN 0.4 MG CAPSULE PO (09:14)
[2021-07-30] MEDS: ENOXAPARIN 40 MG/0.4 ML SYRINGE SUBCUT (09:14)
[2021-07-30] MEDS: NORTRIPTYLINE 10 MG CAPSULE PO (09:14)
[2021-07-30] MEDS: ASPIRIN EC 81 MG TABLET PO (09:14)
--- NOTE | 2021-07-30 10:13 | PT.IIE ---
Addendum entered and electronically signed by Trini Ibarra PT 07/30/21 10:38: Add to assessment: Oculomotor and vestibular screens were grossly normal. Original Note: Medical History (Last Reviewed 07/29/21 @ 17:30 by Oneal Sood MD) BPH (benign prostatic hyperplasia) Depression Hyperlipidemia Physical Therapy Inpatient Evaluation/Re-Eval M1 PT/OT-IP Prior Functional Status Start: 07/30/21 08:56 Freq: NEEDED Status: Active Protocol: Document 07/30/21 10:13 AW (Rec: 07/30/21 10:23 AW [email or web address]) Medical Review Prior Functional Status Medical History Reviewed Yes Communication Pt is an effective verbal communicator. No known deficits. Mobility and Gait Pt is independently mobile. He denies falls. He spends hours daily outside on his [place] . Activities of Daily Living and IADL's Independent. Social History Household Members none Living Arrangements House Number of Floors (Floors) 3 or More Floors Number of Stairs To Enter/Railing? Level entrance. 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 House has an elevator. 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 His of 50+ years moved to [place] last year. He has supportive children - Alex and Erin. He had another daughter who within the last year. Pt reports he has been taking medication for depression/ anxiety for ~4 months. M2 PT-IP Current Condition Start: 07/30/21 08:56 Freq: NEEDED Status: Active Protocol: Document 07/30/21 10:13 AW (Rec: 07/30/21 10:32 AW [email or web address]) Physical Therapy Current Condition Current Condition Evaluation Date 07/30/21 Treatment Diagnosis dizziness, dysarthria, difficulty in walking Onset Date 07/29/21 M3 PT-IP Subjective Start: 07/30/21 08:56 Freq: NEEDED Status: Active Protocol: Document 07/30/21 10:13 AW (Rec: 07/30/21 10:32 AW [email or web address]) Subjective Physical Therapy Visit Type Type Initial Evaluation Visit Start Time 09:46 Visit Stop Time 10:13 Total Visit Minutes 27 Notes Pt has not had meclizine since yesterday afternoon. Physical Therapy Visit Comments Patient Comments Pt is willing to participate with PT Patient Goals Return home GABRIEL. Therapy Pain Assessment Pain When Pain Assessed During Mobility Pain Present Pain Present Denied Pain M4 PT-IP Mobility and Gait Start: 07/30/21 08:56 Freq: NEEDED Status: Active Protocol: Document 07/30/21 10:13 AW (Rec: 07/30/21 10:32 AW [email or web address]) PT-Bed Mobility Assessment Rolling Type of Rolling Bilateral Level of Assist Independent Supine to Sit Supine to Sit Independent PT-Transfer Assessment Sit to and From Stand Sit to and from Stand Independent,Use of Upper Extremities Equipment Transfer Assistive Device None,Gait Belt Orthotic/Prosthetic Devices or Brace: No Transfers Transfer Destination Chair Transfer Technique Stand Step Pivot Transfer Ability Level of Assist Independent Comments Mobility Comments Pt was lying in bed as PT arrived. Supine BP 119/64 HR 69. He was able to roll side to side with no sign of dizziness, nausea, and no observed nystagmus. He sat up on the right side of the bed. Sitting BP 125/70 HR 65. He stood without assist and initial balance was good. Standing BP was 118/68 HR 68. Pt ambulated in the halls a total of 350 feet with no AD and no assist required except for NBOS walking during FGA. Pt completed Functional Gait Assessment with score of 25/30 . He returned to the room as his son arrived. He transferred to the chair and was left with call light and all needs in reach. Gait Assessment Gait Gait Assistance Required: Independent,Contact Guard Assist Distance (Feet) 350 Assistive Devices Assistive Device None,Gait Belt Orthotic/Prosthetic Devices or Brace: No Gait Deviations General Gait Pattern Within Normal Limits Comments Gait Comments See mobility comments. FGA: single point deducted for vertical head turns, eyes closed, and steps. Two points deducted for NBOS walking which did require CGA. Stair Climbing Assessment Evaluation Level of Assist On Stairs Independent Devices Stair Climbing Assistive Devices Right Railing Technique/Endurance Stair Climbing Direction Ascend and Descend Stair Climbing Technique Step Over Step Number of Steps Climbed 3 Query Text: Stair Climbing Set # Repetitions (reps) 2 PT-Balance Assessment Sitting Balance and Reactions Static Sitting Balance Ability Normal Dynamic Sitting Balance Ability Normal Standing Balance and Reactions Static Standing Balance Ability Normal Dynamic Standing Balance Ability Good Device Used none Functional Assessments Functional Tests Functional Gait Assessment 25/30 M5 PT-IP Objective Assessments Start: 07/30/21 08:56 Freq: NEEDED Status: Active Protocol: Document 07/30/21 10:13 AW (Rec: 07/30/21 10:37 [email or web address]) Orientation Orientation/Cognition Level of Alertness Alert Orientation Name,Day of Week,Place, Situation Language Function Ability No Deficits Noted Safety Awareness Understands Safety Issues Memory Description No Deficits Noted Comments Speech was intelligible and appropriate. Gross Range of Motion Upper Extremity ROM Assessment Within Functional Limits Lower Extremity ROM Assessment Within Functional Limits Strength Upper Extremity Strength Assessment Within Functional Limits Lower Extremity Strength Assessment Within Functional Limits Comments Strength Comments No unilateral deficit on exam. Coordination Assessment Gross Coordination Gross Coordination WNL Assessment Finger to Nose Test Normal Performance Pronation/Supination Test Normal Performance Sensation Assessment Sensation Gross Sensation WNL Muscle Tone Muscle Tone WNL Yes M6 PT-IP Treatment Start: 07/30/21 08:56 Freq: NEEDED Status: Active Protocol: Document 07/30/21 10:13 AW (Rec: 07/30/21 10:37 [email or web address]) Physical Therapy Treatment Education Education Provided Safety Other Treatments Other Treatment Performed Educated pt on signs of stroke and need for immediate treatment when indicated. M7 PT-IP Assessment and Plan Start: 07/30/21 08:56 Freq: NEEDED Status: Active Protocol: Document 07/30/21 10:13 AW (Rec: 07/30/21 10:37 [email or web address]) PT Summary Assessment and Plan Potential Status of Condition at Evaluation Stable Summary Assessment Summary Francisco is an active and independent 76 yo man seen for PT evaluation per stroke protocol following a day with dizziness, dysarthria, and challenged balance. On assessment, his speech is clear, he has no dizziness, orthostatic BP is negative, and pt scores 25/30 on Functional Gait Assessment which is within age-matched norms (Walker, 2007). No PT needs are identified. Educated pt on signs of stroke and return precautions. Pt will be discharged from acute PT services. Frequency of Treatment Frequency Of Treatment Discharge Recommendations To Nursing Amount of Assist Needed Independent,Standby Assistance Discharge Recommendations PT Discharge Recommendations Home Transportation Needs at Discharge Private Vehicle
[2021-07-30 11:00] VITALS: BP 115/74; PULSE 60; RESP 21; TEMP 37.1; O2SAT 97
--- NOTE | 2021-07-30 14:50 | PC.NURSE ---
Pt IV and tele removed. Has had his echo and awaiting results for discharge. Went over d/c meds, time of last dose, reviewed stroke education, discussed blood thinners, follow up with Dr. Harvey. Pt to make a follow up in 1 week. Pt denies further questions and is getting dressed and will be discharged home when echo results come back and be officially released by Dr. Sood.
[2021-07-30 15:20] VITALS: BP 116/63; PULSE 63; RESP 20; TEMP 37.1; O2SAT 98
--- NOTE | 2021-07-30 16:07 | PC.NURSE ---
Pt out via w/c by RN to pov with Friend and all belongings.
== END 2021-07-30 16:07 | disposition home or self-care (01) ==
LOC: ED 09:27 → AC 12:37
PROVIDERS: Admitting Provider Internal Medicine; Emergency Provider Emergency Medicine; PCP Internal Medicine; Referring Provider Emergency Medicine; Visit Provider Internal Medicine
DX: R42 Dizziness and giddiness (principal); R29.700 NIHSS score 0; I65.02 Occlusion and stenosis of left vertebral artery; E78.5 Hyperlipidemia, unspecified; N40.0 Benign prostatic hyperplasia without lower urinary tract symptoms; F32.9 Major depressive disorder, single episode, unspecified; F17.210 Nicotine dependence, cigarettes, uncomplicated; Z20.822 Contact with and (suspected) exposure to COVID-19
CPT/HCPCS: 36415; 70450; 70496; 70498; 70551; 80048; 80061; 80305; 81003; 82962; 83036; 85025; 87635; 93005; 93306; 96372; 97162; 99285; 99291; C9803; G0378; J1650; Q9967

== ENCOUNTER → 2022-08-22 11:59 | Outpatient (CLI) | payer MEDICARE, OTHER, SELFPAY ==
[2021-07-29 14:22] VITALS: BMI 26.2
[2022-08-22 13:06] LABS: Aspartate Aminotransferase 33 IU/L (17-59); BUN Creatinine Ratio 26.9 (6-22); Blood Urea Nitrogen 25 mg/dL (9-20); Calcium 8.9 mg/dL (8.4-10.2); Carbon Dioxide 26 mmol/L (22-32); Chloride 105 mmol/L (98-107); Cholesterol 123 mg/dL (140-199); Estimated Glomerular Filt Rate > 60 mL/min (>60); Glucose 90 mg/dL (80-110); HDL Cholesterol 35 mg/dL (40-60); HEMOLYSIS < 15 (0-50); LDL Cholesterol Calculated 69 mg/dL (<100); Potassium 4.3 mmol/L (3.4-5.1); Sodium 139 mmol/L (137-145); Triglycerides 97 mg/dL (35-150)
[2022-08-22 13:30] LABS: Prostate Specific Antigen 1.19 ng/mL (0.10-4.00)
== END ==
PROVIDERS: PCP Internal Medicine; Referring Provider Internal Medicine; Visit Provider Internal Medicine
DX: E78.2 Mixed hyperlipidemia (principal); N40.1 Benign prostatic hyperplasia with lower urinary tract symptoms; N13.8 Other obstructive and reflux uropathy; I67.9 Cerebrovascular disease, unspecified
CPT/HCPCS: 36415; 80048; 80061; 84153; 84450

== ENCOUNTER → 2023-08-08 08:34 | Outpatient (CLI) | payer MEDICARE, OTHER, SELFPAY ==
[2021-07-29 14:22] VITALS: BMI 26.2
[2023-08-08 10:19] LABS: Aspartate Aminotransferase 34 IU/L (17-59); BUN Creatinine Ratio 18.7 (6-22); Blood Urea Nitrogen 20 mg/dL (9-20); Calcium 9.4 mg/dL (8.4-10.2); Carbon Dioxide 27 mmol/L (22-32); Chloride 104 mmol/L (98-107); Cholesterol 157 mg/dL (140-199); Estimated Glomerular Filt Rate > 60 mL/min (>60); Glucose 99 mg/dL (80-110); HDL Cholesterol 34 mg/dL (40-60); HEMOLYSIS < 15 (0-50); LDL Cholesterol Calculated 87 mg/dL (<100); Potassium 4.9 mmol/L (3.4-5.1); Sodium 138 mmol/L (137-145); Triglycerides 179 mg/dL (35-150)
[2023-08-08 10:46] LABS: Prostate Specific Antigen 1.73 ng/mL (0.10-4.00)
== END ==
PROVIDERS: PCP Internal Medicine; Referring Provider Internal Medicine; Visit Provider Internal Medicine
DX: E78.2 Mixed hyperlipidemia (principal); N40.1 Benign prostatic hyperplasia with lower urinary tract symptoms; N13.8 Other obstructive and reflux uropathy; I67.9 Cerebrovascular disease, unspecified
CPT/HCPCS: 36415; 80048; 80061; 84153; 84450

== ENCOUNTER → 2023-08-26 10:44 | Outpatient (CLI) | payer MEDICARE, OTHER, SELFPAY ==
[2021-07-29 14:22] VITALS: BMI 26.2
--- NOTE | 2023-08-26 10:44 | DI.CT.S_ITS ---
PROCEDURE: CT LUNG LOW DOSE SCREENING INDICATIONS: lung cancer screening TECHNIQUE: Noncontrast 2.0-2.5 mm thick sections acquired from the pulmonary apices to the posterior costophrenic angles. 7 mm thick axial MIP, and 5 mm coronal and sagittal reformats were then acquired. For radiation dose reduction, the following was used: automated exposure control, adjustment of mA and/or kV according to patient size. COMPARISON: [facility], CT, CT CHEST WO CON, 02/27/2019, 14:42. FINDINGS: Image quality: Diagnostic. Lower Neck: No enlarged lymph nodes. Thyroid: No thyroid nodules which require sonographic follow up, per consensus guidelines. Axillae: No enlarged lymph nodes. Chest Wall: Unremarkable. Bones: No suspicious osseous lesion. Lungs and Pleura: No pneumothorax or pleural effusions. No consolidation or suspicious nodules. Heart: Heart size is normal. No pericardial effusion. Thoracic Vessels: The aorta and pulmonary arteries demonstrate normal size. Mediastinum and Miladis: No enlarged lymph nodes. Esophagus: No wall thickening. No hiatal hernia. Upper Abdomen: Visualized upper abdomen solid organs and bowel loops appear normal. IMPRESSION: No suspicious pulmonary nodules. LUNG-RADS 1; continued annual screening, if eligible. Clinically Significant Non-pulmonary Findings: None. Dictated by: Alexis Mo M.D. on 08/26/2023 at 17:21 Approved by: Alexis Mo M.D. on 08/26/2023 at 17:26
== END ==
PROVIDERS: PCP Internal Medicine; Referring Provider Internal Medicine; Visit Provider Internal Medicine
DX: Z87.891 Personal history of nicotine dependence (principal); Z12.2 Encounter for screening for malignant neoplasm of respiratory organs
CPT/HCPCS: 71271

== ENCOUNTER → 2024-08-10 11:04 | Outpatient (CLI) | payer MEDICARE, OTHER, SELFPAY ==
[2021-07-29 14:22] VITALS: BMI 26.2
[2024-08-10 12:29] LABS: Aspartate Aminotransferase 35 IU/L (17-59); BUN Creatinine Ratio 22.6 (6-22); Blood Urea Nitrogen 26 mg/dL (9-20); Calcium 9.7 mg/dL (8.4-10.2); Carbon Dioxide 25 mmol/L (22-32); Chloride 103 mmol/L (98-107); Cholesterol 143 mg/dL (140-199); Estimated Glomerular Filt Rate > 60 mL/min (>60); Glucose 103 mg/dL (80-110); HDL Cholesterol 39 mg/dL (40-60); HEMOLYSIS < 15 (0-50); LDL Cholesterol Calculated 86 mg/dL (<100); Potassium 4.6 mmol/L (3.4-5.1); Sodium 137 mmol/L (137-145); Triglycerides 90 mg/dL (35-150)
[2024-08-10 12:59] LABS: Prostate Specific Antigen 1.34 ng/mL (0.10-4.00)
== END ==
PROVIDERS: PCP Internal Medicine; Referring Provider Internal Medicine; Visit Provider Internal Medicine
DX: E78.2 Mixed hyperlipidemia (principal); N40.1 Benign prostatic hyperplasia with lower urinary tract symptoms; N13.8 Other obstructive and reflux uropathy; I67.9 Cerebrovascular disease, unspecified
CPT/HCPCS: 36415; 80048; 80061; 84153; 84450

== ENCOUNTER 2025-03-29 09:04 | Emergency (ER) | payer MEDICARE, OTHER, SELFPAY ==
[2021-07-29 14:22] VITALS: BMI 26.2
[2025-03-29 09:32] VITALS: BP 125/68; PULSE 70; RESP 15; TEMP 36.4; O2SAT 96; BMI 27.6
--- NOTE | 2025-03-29 09:36 | DI.RAD.S_ITS ---
PROCEDURE: XR KNEE LT 3V INDICATIONS: fall pain swelling TECHNIQUE: 3 views of the knee were acquired. COMPARISON: None. FINDINGS: Bones: No acute fractures or dislocations. No suspicious bony lesions. Suprapatellar enthesophyte Soft tissues: Small joint effusion. Small calcification projects superior to the patella. IMPRESSION: Small joint effusion. No acute osseous abnormality. If symptoms persist or if there is continued clinical concern, cross-sectional imaging such as MRI or CT may be helpful for further evaluation. Approved by: Guanako Valderrama M.D. on 03/29/2025 at 9:55
--- NOTE | 2025-03-29 09:39 | ED.LOWEXIN ---
HPI - Extremity Injury (Lower) General Chief Complaint: Extremity Injury, Lower Stated Complaint: Fell, Left knee pain , not on blood thinners Time Seen by Provider: 03/29/25 09:32 Source: patient Mode of arrival: Wheelchair History of Present Illness HPI Narrative: Patient is 80-year-old male without significant past medical history presenting to day with significant left knee pain. Reports that he fell going down a slippery steep slope in his knee bent under him. He denies any other injury no head injury no loss of consciousness no neck pain no rib pain. He is unable to weightbear has significant swelling. Took 3 Aleve prior to arrival. Related Data Previous Rx's ?Medication ?Instructions ?Recorded nortriptyline 10 mg capsule 10 mg PO DAILY #90 caps 08/10/24 sertraline 100 mg tablet 100 mg PO DAILY #90 tabs 08/10/24 simvastatin 40 mg tablet 40 mg PO QPM #90 tabs 08/10/24 tamsulosin 0.4 mg capsule 0.4 mg PO DAILY #90 caps 08/10/24 hydrocodone 5 mg-acetaminophen 325 1 tab PO Q6H PRN pain #10 tabs 03/29/25 mg tablet Allergies Allergy/AdvReac Type Severity Reaction Status Date / Time Sulfa (Sulfonamide Allergy Verified 08/10/24 10:27 Antibiotics) Patient History Medical History BPH w urinary obs/LUTS Cerebrovascular disease Chronic mixed headache syndrome Depression, recurrent History of colonic polyps Mixed hyperlipidemia Overweight Social History marital status: details: (Pau), with advanced dementia living at [facility]. household members: none alcohol intake: never Exam Initial Vital Signs Initial Vital Signs: Vital Signs Temperature 97.6 F 03/29/25 09:32 Pulse Rate 70 03/29/25 09:32 Respiratory Rate 15 03/29/25 09:32 Blood Pressure 125/68 03/29/25 09:32 Pulse Oximetry 96 03/29/25 09:32 Oxygen Delivery Method Room Air 03/29/25 09:32 GENERAL: Well-appearing, well-nourished and in no acute distress. CARDIOVASCULAR: peripheral pulses in tact, cap refill <2 sec RESPIRATORY: No respiratory distress, speaks in full sentences without difficulty EXTREMITIES: Normal range of motion, no clubbing or edema. Neurovascularly intact Left knee significant swelling there does feel somewhat of a step-off quadriceps tendon difficult time flexing knee, however he is able to flex and extend just limited secondary to pain also able to move toes NEUROLOGICAL: Cranial nerves II through XII grossly intact. Normal gait and speech. SKIN: Warm, dry, no petechiae, no rashes or lesions. Course Orders Ordered: ED Orders 03/29/25 09:36 XR knee LT 3V Stat Vital Signs Vital signs: Vital Signs - 8 hr 03/29/25 09:32 03/29/25 11:37 Temperature 97.6 F Pulse Rate 70 70 Respiratory Rate 15 16 Blood Pressure 125/68 125/67 Pulse Oximetry 96 96 Oxygen Delivery Method Room Air Room Air MDM - Extremity Injury (Lower) Imaging Data Extremity x-ray #1: Radiologist's Impression: PROCEDURE: XR KNEE LT 3V INDICATIONS: fall pain swelling TECHNIQUE: 3 views of the knee were acquired. COMPARISON: None. FINDINGS: Bones: No acute fractures or dislocations. No suspicious bony lesions. Suprapatellar enthesophyte Soft tissues: Small joint effusion. Small calcification projects superior to the patella. IMPRESSION: Small joint effusion. No acute osseous abnormality. If symptoms persist or if there is continued clinical concern, cross-sectional imaging such as MRI or CT may be helpful for further evaluation. Approved by: Guanako Valderrama M.D. on 03/29/2025 at 9:55 [facility] Narrative Medical decision making narrative: Patient is 80-year-old male presents today with left knee pain. After mechanical fall down a hill. He does have pretty significant swelling in his left knee mostly medial. He is able to extend his knee low suspicion for patellar tendon rupture. X-rays negative for fracture. He has a good distal pedal pulse in his foot. Pain is very well-controlled here. We discussed pain management and supportive care. Encourage outpatient MRI and [facility] follow-up. Discharge Plan Departure Patient Disposition: Home Clinical Impression: Left knee sprain Instructions: Knee Sprain Activity Restrictions/Additional Instructions: *You have been diagnosed with left knee sprain *What to do: At this time keep knee immobilizer on we will active and sleeping may take off for bathing. Use crutches as needed. May weightbear as tolerated. I suspect he will need an outpatient MRI for further evaluation. Elevate and ice 20-30 minutes at a time *Continue to take medications as directed Motrin 600 mg every 6 hours for [id number]-[id number] pain Tylenol 650 mg every 4-6 hours for hezo-ms-odtauszy pain [place] 1 tablet every 6 hours or at nighttime before bed for severe pain *Follow up with your primary care provider in 2-3 days or call [phone] [facility] orthopedics to schedule follow-up appointment in about 1-2 weeks *Return to ER if you should have increasing pain swelling redness fever or any new, worsening or concerning symptoms CONTROLLED SUBSTANCE DISCHARGE (Narcotoic/benzodiazepine/Flexeril/Phenergan) 1. You have been prescribed narcotic medications, it does have acetaminophen/Tylenol/paracetamol in it, DO NOT TAKE MORE THAN 4,00mg in 24 hours of Tylenol. TRAMADOL DOES NOT CONTAIN TYLENOL 2. Please understand that we cannot provide further refills of narcotics, benzodiazepines or controlled substances through the ED and her pain management will need to be through your provider. 3. While on these medications you cannot drive or operate heavy machinery. 4. You cannot sign legal documents or perform any duties such as this. 5. As long as you're taking opiate pain medications he should also be taking a stool softener such as Colace, Dulcolax, MiraLAX or prune juice, to help avoid constipation. Prescriptions: New hydrocodone-acetaminophen 5-325 mg tablet 1 tab PO Q6H PRN (Reason: pain) Qty: 10 0RF No Action nortriptyline 10 mg capsule 10 mg PO DAILY Qty: 90 3RF sertraline 100 mg tablet 100 mg PO DAILY Qty: 90 3RF simvastatin 40 mg tablet 40 mg PO QPM Qty: 90 3RF tamsulosin 0.4 mg capsule 0.4 mg PO DAILY Qty: 90 3RF Referrals: Fernando Harvey MD [Primary Care Provider, Internal Medicine] Kj Hoang MD [Physician, Orthopedic Surgery] Stand Alone Forms: Patient Portal/API
[2025-03-29 11:37] VITALS: BP 125/67; PULSE 70; RESP 16; O2SAT 96
== END 2025-03-29 11:37 | disposition home or self-care (01) ==
PROVIDERS: Emergency Provider Emergency Medicine; PCP Internal Medicine
DX: S83.92XA Sprain of unspecified site of left knee, initial encounter (principal); W10.2XXA Fall (on)(from) incline, initial encounter
CPT/HCPCS: 73562; 99283